=== PATIENT | male | born 1975 | race African-American/Black ===

== ENCOUNTER 2019-03-19 17:46 | Emergency (ER) | payer OTHER ==
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
[2019-03-19] MEDS ORDERED: HYDROCODONE/ACETAMINOPHEN 5-325 MG (6 TAB/ER DISP) PO PRN (20:02)
[2019-03-19 20:04] VITALS: BP 118/78
== END 2019-03-19 20:10 | disposition home or self-care (01) ==
LOC: ER 17:46
PROC: 2W3CX1Z Immobilization of Right Lower Arm using Splint (ICD-10-PCS; principal; 2019-03-19)
DX: S62.231A Other displaced fracture of base of first metacarpal bone, right hand, initial encounter for closed fracture (principal); S80.01XA Contusion of right knee, initial encounter; S09.90XA Unspecified injury of head, initial encounter; M79.642 Pain in left hand; M25.532 Pain in left wrist; M25.561 Pain in right knee; M54.2 Cervicalgia; V87.7XXA Person injured in collision between other specified motor vehicles (traffic), initial encounter
CPT/HCPCS: 99283